=== PATIENT | female | born 2000 | race Caucasian/White ===

== ENCOUNTER 2019-11-17 12:22 | Emergency (ER) | payer MEDICAID ==
[~2019-11-17] VITALS: Ht 162.6 cm; Wt 73.3 kg
--- NOTE | 2019-11-17 12:42 | NUR ---
Pt here for abd pain with n/v and possible food poisioning. Pt reprots she cannot stop throwing up and does not feel well. Pt apperas to be dehydrated has pale skin color but good cap refill and has dry cracked lips. Pt denies any trauma. pt connected to monitors and asked to provide UA.
--- NOTE | 2019-11-17 12:51 | NUR ---
UA collected and sent to lab.
[2019-11-17 13:03] LABS: MICROSCOPIC NOT IND
[2019-11-17] MEDS ORDERED: MORPHINE SULFATE 4 MG/ML, 1ML ONE ×2 (13:27→16:07)
[2019-11-17] MEDS ORDERED: ONDANSETRON 2MG/ML, 2ML ONE ×2 (13:27→16:07)
[2019-11-17 13:29] LABS: HCG UR SG 1.027 (1.003-1.030)
[2019-11-17] MEDS ORDERED: MORPHINE SULFATE 4 MG/ML, 1ML IVPush ONE ×2 (13:30→16:30)
[2019-11-17] MEDS ORDERED: ONDANSETRON 2MG/ML, 2ML IVPush ONE ×2 (13:30→16:30)
[2019-11-17 13:35] LABS: MEAN CORPUSCULAR HEMOGLOBIN 30.1 pg (27.0-34.8); MEAN CORPUSCULAR HGB CONC 33.7 g/dL (32.4-35.8); MEAN CORPUSCULAR VOLUME 89.3 fL (80-100); MEAN PLATELET VOLUME 10.5 fL (7.4-10.4); PLATELET COUNT 197 x10^3/uL (130-400); RED CELL DISTRIBUTION WIDTH 12.4 % (9.6-15.2)
[2019-11-17 13:45] VITALS: BP 116/70
--- NOTE | 2019-11-17 13:45 | NUR ---
Pt medicated per emar, US at bedside
[2019-11-17 13:47] LABS: ALBUMIN 4.2 g/dL (3.4-5.0); ANION GAP 13 mmol/L (5-15); CHLORIDE 108 mmol/L (98-107)
[2019-11-17 13:50] LABS: ALANINE AMINOTRANSFERASE 29 U/L (12-78); ALKALINE PHOSPHATASE 52 U/L (45-117); BILIRUBIN,TOTAL 2.8 mg/dL (0.2-1.0); CREATININE 1.24 mg/dL (0.55-1.02); TOTAL PROTEIN 8.6 g/dL (6.4-8.2)
--- NOTE | 2019-11-17 13:57 | NUR ---
REPORT FROM [facility]. PT CARE RESPONSIBILITIES ASSUMED.
[2019-11-17 14:02] LABS: MD YES
[2019-11-17 14:04] LABS: BAND#(MANUAL) 1.19 x10^3/uL; BANDS%(MANUAL) 10 % (0-7); LYMPH#(MANUAL) 0.36 x10^3/uL (1-3.4); LYMPHS% (MANUAL) 3 % (22-44); MONOS#(MANUAL) 0.12 x10^3/uL (0.3-2.7); MONOS% (MANUAL) 1 % (2-9); REACTIVE LYMPHS # (MANUAL) 0.12 x10^3/uL (0-0); REACTIVE LYMPHS % (MANUAL) 1 % (0-0); SEG#(MANUAL) 10.12 x10^3/uL (1.8-6.8); SEGS% (MANUAL) 85 % (42-75)
[2019-11-17 14:05] LABS: <PLATELET ESTIMATE> ADEQUATE; <RBC MORPHOLOGY> NORMAL; LARGE PLATELETS 1+
[2019-11-17] MEDS ORDERED: SODIUM CHLORIDE FLUSH 10ML SYR IVF ONE (15:00)
[2019-11-17] MEDS ORDERED: SODIUM CHLORIDE 0.9% 1,000ML IVBOLUS ONE (15:00)
[2019-11-17] MEDS ORDERED: OMNIPAQUE 350 MG/ML, 100ML BOTTLE ONE (15:36)
--- NOTE | 2019-11-17 16:16 | NUR ---
PT IN IMAGING AT THIS TIME.
== END 2019-11-17 17:34 | disposition home or self-care (01) ==
LOC: ED 13:30
DX: N83.291 Other ovarian cyst, right side (principal); R11.2 Nausea with vomiting, unspecified; R10.31 Right lower quadrant pain; R10.11 Right upper quadrant pain
CPT/HCPCS: 36415; 74177; 76700; 76830; 80053; 81003; 81025; 83690; 85025; 96361; 96374; 96375; 96376; 99285; J2270; J2405; J7030; Q9967